=== PATIENT | female | born 1960 | race African-American/Black ===

== ENCOUNTER 2016-12-15 13:59 | Emergency (ER) | payer MEDICAID ==
[~2016-12-15] VITALS: Ht 162.6 cm; Wt 101.6 kg
[2016-12-15 14:09] VITALS: BP 137/92
--- NOTE | 2016-12-15 14:17 | NUR ---
Patient ambulated to bed 04.
[2016-12-15] MEDS ORDERED: KETOROLAC 30 MG/ML VIAL IM ONE (14:40)
--- NOTE | 2016-12-15 14:48 | NUR ---
LAB at bedside.
--- NOTE | 2016-12-15 14:50 | NUR ---
PATIENT PRESENTS TO ED WITH c/o left flank pain tenderness x 2 hrs ago---denies injury, denies dysuria hx---htn, hyperlipidemia, bipolar w psychotic features, depression rx---abilify, welbutrin, lisinopril, metformin, DENIES N/V/D; SKIN IS PINK/WARM/DRY; AAOX4 WITH EVEN AND STEADY GAIT; LUNGS CLEAR BL; HR EVEN AND REGULAR; PT DENIES ANY FEVER, CP, SOB, OR COUGH AT THIS TIME; PATIENT STATES LEFT FLANK PAIN OF 10/10 AT THIS TIME; VSS; PATIENT POSITIONED FOR COMFORT; HOB ELEVATED; BEDRAILS UP X2; BED DOWN. ER MD MADE AWARE OF PT STATUS.
[2016-12-15 14:57] LABS: BASOPHILS # (AUTO) 0.2 K/uL (0.00-0.22); EOSINOPHILS # (AUTO) 0.2 K/uL (0-0.4); EOSINOPHILS % (AUTO) 3.6 % (0.0-4.0); HEMATOCRIT 38.8 % (36-48); HEMOGLOBIN 12.8 g/dL (12.0-16.0); LYMPHOCYTES # (AUTO) 1.7 K/uL (2.5-16.5); LYMPHOCYTES % (AUTO) 27.7 % (20.5-51.1); MEAN CORPUSCULAR HEMOGLOBIN 26 pg (27-31); MEAN CORPUSCULAR HGB CONC 33 g/dL (33-37); MEAN CORPUSCULAR VOLUME 80 fL (80-94); MONOCYTES # (AUTO) 0.4 K/uL (0.8-1.0); MONOCYTES % (AUTO) 6.5 % (1.7-9.3); NEUTROPHILS # (AUTO) 3.6 K/uL (1.8-7.7); PLATELET COUNT (AUTO) 215 K/uL (140-450); RED BLOOD CELL COUNT(AUTO) 4.85 MIL/uL (4.20-5.40); RED CELL DISTRIBUTION WIDTH 12.6 % (11.6-13.7); WHITE BLOOD COUNT (AUTO) 6.1 K/uL (4.8-10.8)
[2016-12-15 15:00] LABS: APPEARANCE,URINE CLEAR (CLEAR); BILIRUBIN,URINE NEGATIVE (NEGATIVE); BLOOD, URINE TRACE-I (NEGATIVE); COLOR,URINE YELLOW (YELLOW); LEUKOCYTE ESTERASE ,URINE NEGATIVE (NEGATIVE); NITRITE, URINE NEGATIVE (NEGATIVE); PH,URINE 5.5 (5.0-9.0); PROTEIN,URINE NEGATIVE (NEGATIVE); UGLUCOSE NEGATIVE (NEGATIVE); UROBILINOGEN,URINE 0.2 EU/dL (0.2 - 1)
[2016-12-15 15:15] LABS: ALBUMIN 3.6 g/dL (3.4-5.0); TOTAL BILIRUBIN 0.3 mg/dL (0.0-1.0); TOTAL PROTEIN, SERUM 6.9 g/dL (6.4-8.2)
[2016-12-15 15:16] LABS: BACTERIA,URINE 1-9 (FEW) /HPF (None Seen); SQUAMOUS EPITHELIAL CELL,UR 4-10 (MOD) /LPF (0-3 (FEW))
[2016-12-15 16:09] VITALS: BP 128/88
== END 2016-12-15 16:09 | disposition home or self-care (01) ==
LOC: MED 13:59
DX: R07.81 Pleurodynia (principal); E78.5 Hyperlipidemia, unspecified; F31.9 Bipolar disorder, unspecified
CPT/HCPCS: 36415; 80053; 81001; 81025; 82150; 83690; 85025; 96372; 99284; J1885

== ENCOUNTER 2017-02-03 09:42 | Emergency (ER) | payer MEDICAID ==
[~2017-02-03] VITALS: Ht 162.6 cm; Wt 100.7 kg
[2017-02-03 09:49] VITALS: BP 133/84
--- NOTE | 2017-02-03 09:54 | NUR ---
56F BIB FAMILY C/O LEFT GROIN PAIN X 4 DAYS; PT STATES " WE WERE MAKING LOVE AND I HEARD SOMETHING POP". HX: HTN. DENIES N/V/D; SKIN IS PINK/WARM/DRY; AAOX4 WITH EVEN AND STEADY GAIT; LUNGS CLEAR BL; HR EVEN AND REGULAR; PT DENIES ANY FEVER, CP, SOB, OR COUGH AT THIS TIME; PATIENT STATES PAIN OF 9/10 AT THIS TIME; VSS; PATIENT POSITIONED FOR COMFORT; HOB ELEVATED; BEDRAILS UP X2; BED DOWN. ER MD MADE AWARE OF PT STATUS.
--- NOTE | 2017-02-03 09:54 | NUR ---
PT AMBULATED TO BED8
--- NOTE | 2017-02-03 10:28 | NUR ---
ER MD DR GARCIA EVALUATING PT AT BEDSIDE.
--- NOTE | 2017-02-03 10:30 | NUR ---
Patient appears to be resting comfortably in bed. Vital Signs within normal limits. Respirations even and unlabored.WILL CONTINUE TO MONITOR.
[2017-02-03] MEDS ORDERED: HYDROcodone/APAP 10/325 MG 1 TAB TAB PO ONE (10:35)
--- NOTE | 2017-02-03 10:37 | NUR ---
PAIN 9/10.GAVE PAIN MED ORDER.
--- NOTE | 2017-02-03 10:53 | NUR ---
PT STS PAIN 3/10 AT THIS TIME. FAMILY AT BEDSIDE.
--- NOTE | 2017-02-03 11:26 | NUR ---
ER MD DR GARCIA REEVALUATING PT AT BEDSIDE.
[2017-02-03 11:38] VITALS: BP 147/74
== END 2017-02-03 11:39 | disposition home or self-care (01) ==
LOC: MED 09:42
DX: S39.011A Strain of muscle, fascia and tendon of abdomen, initial encounter (principal); I10 Essential (primary) hypertension; Z88.1 Allergy status to other antibiotic agents; X58.XXXA Exposure to other specified factors, initial encounter; Y93.89 Activity, other specified; Y92.89 Other specified places as the place of occurrence of the external cause; Y99.8 Other external cause status
CPT/HCPCS: 99283